=== PATIENT | male | born 1990 | race Two or more races ===

== ENCOUNTER 2016-12-15 22:20 | Emergency (ER) | payer SELFPAY ==
[~2016-12-15] VITALS: Ht 172.7 cm; Wt 68.0 kg
[2016-12-15] MEDS ORDERED: NKM (22:37)
[2016-12-15 22:45] VITALS: BP 128/81
[2016-12-15] MEDS ORDERED: KEPPRA500 M4 ORAL (22:47)
--- NOTE | 2016-12-15 22:48 | Emergency Room Report ---
History of Present Illness General Chief Complaint: Head Injury Source: Patient Present Illness HPI This is a 26-year-old male with history of epilepsy when he was younger. He had a seizure about 5 years ago. He presents with chief complaint of head injury and headache. His family witnessed a seizure last night. He was tonic- clonic in activity. Lasted about a minute. He has no recollection. He came in because the back of his head is hurting. No nausea no vomiting. No fever or chills. No other injury. No tongue laceration. No incontinence of bowel or urine. He said he still drives occasionally. Allergies: Coded Allergies: No Known Allergies (Unverified , 12/15/16) Patient History Past Medical History: see triage record, old chart reviewed, seizures Past Surgical History: other Pertinent Family History: none Social History: Reports: drug use - Marijuana Immunizations: other Reviewed Nursing Documentation: PMH: Agreed, PSxH: Agreed Nursing Documentation-PMH Past Medical History: No History, Except For Hx Seizures: Yes - childhood seizures Review of Systems Eye: Denies: blurred vision, eye pain ENT: Denies: ear pain, nose congestion, throat swelling Respiratory: Denies: cough, shortness of breath Cardiovascular: Denies: chest pain, palpitations Gastrointestinal: Denies: abdominal pain, diarrhea, nausea, vomiting Musculoskeletal: Denies: back pain, joint pain Skin: Denies: rash Neurological: Denies: headache, numbness Endocrine: Denies: increased thirst, increased urine Hematologic/Lymphatic: Denies: easy bruising All Other Systems: negative except mentioned in HPI Physical Exam Vital Signs Date Time Temp Pulse Resp B/P Pulse Ox O2 Delivery O2 Flow Rate FiO2 12/15/16 22:33 98.2 62 17 128/81 99 Room Air vitals normal Sp02 EP Interpretation: reviewed, normal General Appearance: well appearing, no apparent distress, alert Head: normocephalic, atraumatic, other - Mild tenderness over the occipital area. No deformity. No trauma. Eyes: bilateral eye EOMI, bilateral eye PERRL ENT: hearing grossly normal, normal pharynx Neck: full range of motion, supple, no meningismus Respiratory: chest non-tender, lungs clear, normal breath sounds Cardiovascular #1: regular rate, rhythm, no murmur Gastrointestinal: normal bowel sounds, non tender, no mass, no organomegaly, no bruit, non-distended Musculoskeletal: back normal, gait/station normal, normal range of motion Psychiatric: mood/affect normal Skin: warm/dry Medical Decision Making Diagnostic Impression: Primary Impression: Acute head injury Qualified Codes: S09.90XA - Unspecified injury of head, initial encounter Additional Impression: Seizure ER Course Patient present with minor head injury secondary to seizure. Because of his reoccurrence, we'll start her on seizure medication. I also told the patient that I have to restrict his driving privileges. DMV report filed. He will need clearance from a neurologist prior to driving. CT/MRI/US Diagnostic Results CT/MRI/US Diagnostic Results : Imaging Test Ordered: CT head Impression read by radiologist. Negative. Last Vital Signs Date Time Temp Pulse Resp B/P Pulse Ox O2 Delivery O2 Flow Rate FiO2 12/15/16 22:33 98.2 62 17 128/81 99 Room Air Status: improved Disposition: HOME, SELF-CARE Condition: Stable Scripts Levetiracetam (KEPPRA) 500 Mg Tablet 500 MG ORAL EVERY 12 HOURS, #60 TAB 0 Refills Prov: NEERAJ MORROW M.D. 12/15/16 Additional Instructions: Followup with your DrJose Miguel in 7 days. You would need a referral to see a neurologist. Because of the recurrence of seizure, you cannot drive. You would need clearance first in order to drive. Return if symptom worsen. NEERAJ MORROW M.D. Dec 15, 2016 22:48
[2016-12-15 23:41] VITALS: BP 128/81
--- NOTE | 2016-12-16 09:04 | Diagnostic Imaging Report ---
Indication: TRAUMA Technique: Continuous helical CT scanning of the head was performed without intravenous contrast material. Axial and coronal 5 mm sections were generated. Radiation dose was minimized using automated exposure control Dose: Total Dose Length Product - DLP [address] Dose Index - CTDIvol(s) 70.38 mGy. Comparison: None Findings: The ventricular system is normal in size and configuration. There is no shift of midline structures. No abnormal extra-axial fluid collections are noted. There is no evidence of intracerebral bleeding. No other abnormal high or low density areas are noted within the brain. There is a right maxillary sinus polyp or mucous retention cyst. The calvarium is intact. There is minimal sphenoid sinus mucosal thickening. Impression: Normal CT scan of the head without contrast material. Incidental finding of sinus disease This agrees with the preliminary interpretation provided overnight by [facility]. The CT scanner at [facility] is accredited by the [place] [employer] and the scans are performed using protocols designed to limit radiation exposure to as low as reasonably achievable to attain images of sufficient resolution adequate for diagnostic evaluation.
== END 2016-12-15 23:35 | disposition home or self-care (01) ==
LOC: EMR 23:00
DX: S09.90XA Unspecified injury of head, initial encounter (principal); G40.909 Epilepsy, unspecified, not intractable, without status epilepticus; F12.90 Cannabis use, unspecified, uncomplicated
CPT/HCPCS: 70450; 80299; 99284